=== PATIENT | female | born 1975 | race American Indian/Alaskan Native ===

== ENCOUNTER 2022-03-23 16:41 | Emergency (ER) | payer SELFPAY ==
[2022-03-23 18:23] VITALS: BP 136/90
[2022-03-24] MEDS ORDERED: propofoL 200 MG/20 ML VIAL IV ONE ×3 (10:08→10:09)
[2022-03-24] MEDS ORDERED: SODIUM CHLORIDE IRRI 500 ML 500 ML IR ONE (10:33)
== END 2022-03-24 04:16 | disposition left against medical advice (07) ==
LOC: ED 16:41
DX: R10.9 Unspecified abdominal pain (principal); Z53.21 Procedure and treatment not carried out due to patient leaving prior to being seen by health care provider
CPT/HCPCS: J2704 ×3